=== PATIENT | female | born 1995 | race Caucasian/White ===

== ENCOUNTER 2022-05-10 22:06 | Emergency (ER) | payer MEDICAID, OTHER ==
[~2022-05-10] VITALS: Ht 157.5 cm; Wt 66.4 kg
[~2022-05-10 22:06] MED LIST: CLON0.5T4 PO; FLUO20CA36 PO
[2022-05-10 22:17] VITALS: BP 132/59
== END 2022-05-10 23:00 | disposition left against medical advice (07) ==
LOC: EMS 22:06
DX: Z53.21 Procedure and treatment not carried out due to patient leaving prior to being seen by health care provider (principal)